=== PATIENT | male | born 1945 | race Caucasian/White ===

== ENCOUNTER 2020-09-27 08:02 | Day surgery (SDC) | payer MEDICARE ==
[2020-09-26 09:00] VITALS: BMI 31.4
[~2020-09-27 08:02] MED LIST: DEXAMETHASONE SOD PHOSPHATE 4 MG/ML 1 ML VIAL IV ONE; HYDROmorphone 0.5 MG/0.5 ML SYRINGE IVP PRN; LACTATED RINGERS 1,000 ML IV SCH; MIDAZOLAM 2 MG/2 ML VIAL IV PRN; ONDANSETRON 4 MG/2 ML VIAL IVP ONE
[2020-09-27] MEDS ORDERED: LIDOCAINE 1% (10MG/ML) FOR IV START INTRADERMA ONE (08:58)
[2020-09-27] MEDS ORDERED: ePHEDrine SULFATE/0.9% NACL/PF 50 MG/5 ML SYRINGE IV ONE (09:52)
[2020-09-27] MEDS ORDERED: fentaNYL (PF) 50 MCG/ML 2 ML AMP ONE (09:52)
[2020-09-27] MEDS ORDERED: MIDAZOLAM 2 MG/2 ML VIAL ONE (09:52)
[2020-09-27] MEDS ORDERED: PROPOFOL 10 MG/ML 20 ML VIAL IV ONE (09:52)
[2020-09-27] MEDS ORDERED: LIDOCAINE 1% INJ 10MG/ML (20 ML MDV) ONE (09:52)
[2020-09-27] MEDS ORDERED: PHENYLEPHRINE-0.9% NACL SYG 1,000 MCG/10 ML SYRINGE ONE (09:52)
[2020-09-27] MEDS ORDERED: SUCCINYLCHOLINE CHLORIDE 100 MG/5 ML SYR IV ONE (09:52)
[2020-09-27] MEDS ORDERED: HYDROmorphone (PF) 1 MG/ML ONE (09:52)
[2020-09-27] MEDS ORDERED: ceFAZolin 1,000 MG in SODIUM CHLORIDE 0.9% 1,000 ML IRRIGATION ONE (09:58)
[2020-09-27] MEDS ORDERED: BUPIVACAINE (PF) 0.25% 30 ML VIAL SQ ONE (10:10)
[2020-09-27] MEDS ORDERED: LACTATED RINGERS 1,000 ML IV ONE (10:24)
[2020-09-27 11:24] VITALS: TEMP 97.1
[2020-09-27 11:38] VITALS: RESP 16
[2020-09-27 12:47] VITALS: BP 112/64; PULSE 58
--- NOTE | 2020-09-27 12:59 | P.OP ---
Date of Procedure: 09/27/20 Preoperative Diagnosis: Hallux rigidus left foot Postoperative Diagnosis: Same Procedure(s) Performed: First metatarsal phalangeal joint arthrodesis left foot Implants: 1 [facility] MPJ fusion plate and screws Allomatrix Anesthesia: BOB Surgeon: Jacek Franco Estimated Blood Loss (ml): 3 Pathology: none sent Condition: stable Disposition: PACU Indications for Procedure: Painful and arthritic first metatarsal phalangeal joint left foot. Unresponsive to conservative treatment Description of Procedure: The patient was brought into the operative room placed on table supine position. Timeout was taken to confirm correct patient and the first, correct procedure, and correct site of surgery. When the room was in agreement the patient was induced and placed under general anesthetic. A well-padded tourniquet was placed on the left ankle. Then 20 mL of 0.25% Marcaine was injected as a left ankle block. The left foot was then prepped and draped usual manner. The left foot was exsanguinated the tourniquet inflated to 250 mmHg. Attention directed over the dorsomedial aspect of the first MPJ, where an incision was made beginning at the IPJ of the great toe and extending to the midshaft of the first metatarsal. The incision was deepened down to the subcutaneous layer careful to identify voiding retract any neurovascular structures and cauterize any bleeding vessels. Dissection completed medially and laterally to expose the area around the first metatarsal phalangeal joint. A linear capsular and periosteal incision was made just medial to the long extensor tendon to the great toe. Subperiosteal dissection was performed off of the base of the proximal phalanx and head of the first metatarsal. There were large osteophytes present on the dorsal and medial surface of the first metatarsal head that were resected with sagittal saw and then removed. All roughened edges were smoothed with a rasp. Fluoroscopy osteophytes on the dorsal and medial aspect of the base of the proximal phalanx that were removed with a Ronguer. A guidewire was placed in the central aspect of the first metatarsal head and advanced into the metatarsal shaft parallel to the long axis. A 22 mm concave reamer was then used to remove the articular cartilage and subchondral bone of the first metatarsal head until bleeding adulate bone was encountered. The guidewire was removed and then utilized fenestrate the head of the first metatarsal. The guidewire was then inserted at the central aspect of the articular surface of the base of the proximal phalanx of the great toe. It was advanced into the medullary canal parallel to the long axis of the toe. The convex reamer was then used to remove the articular cartilage and subchondral bone of the bleeding medullary bone. The guidewire was removed utilized to fenestrate the surface also. The wound is then thoroughly irrigated with normal saline. 1 mL of AlloMatrix putty was mixed on the back table and then placed between the arthrodesis segments and the great toe. Then the first MPJ fusion plate was positioned dorsally and temporarily fixated. Fluoroscopy was used to check the alignment of the joint as well as the placement of the plate. Once both were acceptable distal locking screws were placed through the plate in the proximal phalanx. Then the drill hole through the compression slot and the plate was made and then the compression screw was inserted and advanced until a compressed the joint which was indicated by some extrusion of the AlloMatrix from the arthrodesis site. Next the proximal locking screws were placed. Final fluoroscopic imaging showed an total bony contact at the arthrodesis site with no visible gapping and proper placement of the hardware and acceptable alignment of the joint. The wound is irrigated thoroughly with antibiotic saline. The capsules closed with 2-0 Vicryl. Subcutaneous closure done with 4-0 Monocryl. And skin closure done with 3-0 Stratafix in a running subcu cuticular manner. An Arthrex jumpstart dressing was placed over the incision and then a bulky dry dressing applied to the left foot. Tourniquet was released and capillary refill return to all digits to the left foot. Then the patient was placed in a well-padded, well molded plaster posterior mold sugar tong splint. Ankle was held at 90 while it dried. Anesthesia was reversed and then the patient was taken recovery with vital signs stable.
--- NOTE | 2020-09-27 16:16 | FL ---
EXAMINATION TYPE: FL guidance operating room DATE OF EXAM: 09/27/2020 FLUOROSCOPY Fluoroscopy time of 28 seconds was used during left foot arthrodesis. No image/s document/s the proc edure.
--- NOTE | 2020-09-30 04:07 | XR ---
EXAMINATION TYPE: XR foot limited LT DATE OF EXAM: 09/27/2020 COMPARISON: NONE HISTORY: 75-year-old male left foot arthrodesis TECHNIQUE: Intraoperative fluoroscopy FINDINGS: One coned-down AP fluoroscopic, intraoperative image showing surgical arthrodesis across the first TM T joint. 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 FLUOROSCOPY Fluoroscopy time of 28 seconds was used during left first MTP joint surgical fusion. 1 image/s docum ent/s the procedure. IMPRESSION: Intraoperative fluoroscopy as above.
== END 2020-09-27 13:26 | disposition home or self-care (01) ==
LOC: OR 08:02
PROVIDERS: ATTEND Podiatrist
DX: M20.22 Hallux rigidus, left foot (principal); M25.775 Osteophyte, left foot; I10 Essential (primary) hypertension; R45.0 Nervousness; Z97.3 Presence of spectacles and contact lenses; Z79.899 Other long term (current) drug therapy; Z89.422 Acquired absence of other left toe(s); Z83.3 Family history of diabetes mellitus; Z82.49 Family history of ischemic heart disease and other diseases of the circulatory system; E11.9 Type 2 diabetes mellitus without complications; F41.9 Anxiety disorder, unspecified; M19.90 Unspecified osteoarthritis, unspecified site; Z87.891 Personal history of nicotine dependence
CPT/HCPCS: 28750; 73620; C1713 ×2; J2250; J1100; J0690 ×2; J2405; J2001; J3010; J1170; J2370; J0330; J2704